=== PATIENT | female | born 1945 | race Caucasian/White ===

== ENCOUNTER → 2017-10-23 12:40 | Outpatient (CLI) | payer MEDICARE ==
[2013-09-19 15:28] VITALS: BMI 30.1
[~2017-10-23 12:40] MED LIST: BENADRYL25 MG PO; CELEXA40 MG PO; CLARITIN 10 MG10 MG PO; NEURONTIN 300300 MG; REQUIP0.5 MG; ZANAFLEX4 MG PO
== END | disposition home or self-care (01) ==
LOC: D.CT 12:40
DX: K57.90 Diverticulosis of intestine, part unspecified, without perforation or abscess without bleeding (principal)